=== PATIENT | female | born 1950 | race African-American/Black ===

== ENCOUNTER 2022-05-11 10:41 | Outpatient (REF) | payer MEDICARE, SELFPAY ==
--- NOTE | ~2022-05-11 | XR_ITS ---
EXAMINATION: BILATERAL HAND/WRIST. CLINICAL INFORMATION: Primary osteoarthritis. Pain. COMPARISON: None TECHNIQUE: 4 views each hand. FINDINGS: Right hand/wrist: There is loss of PIP and DIP joint space with moderate periarticular spurring DIP joint fourth digit and DIP joints third and fifth digit. No visible acute fracture, dislocation or subluxation seen. No bony erosive changes. XR/XR hand wrist RT IMPRESSION: Degenerative arthritic changes PIP and DIP joints both hands. No visible acute fracture, dislocation or subluxation seen.
--- NOTE | ~2022-05-11 | XR_ITS ---
EXAMINATION: BILATERAL HAND/WRIST. CLINICAL INFORMATION: Primary osteoarthritis. Pain. COMPARISON: None TECHNIQUE: 4 views each hand. FINDINGS: Right hand/wrist: There is loss of PIP and DIP joint space with moderate periarticular spurring DIP joint fourth digit and DIP joints third and fifth digit. No visible acute fracture, dislocation or subluxation seen. No bony erosive changes. XR/XR hand wrist LT IMPRESSION: Degenerative arthritic changes PIP and DIP joints both hands. No visible acute fracture, dislocation or subluxation seen.
== END 2022-05-11 10:42 | disposition home or self-care (01) ==
LOC: HO.XRAY 10:41
PROVIDERS: PCP Internal Medicine; Visit Provider Student in an Organized Health Care Education/Training Program
DX: M19.041 Primary osteoarthritis, right hand (principal); M19.042 Primary osteoarthritis, left hand; M10.9 Gout, unspecified; I95.9 Hypotension, unspecified
CPT/HCPCS: 73110; 73130; 99202

== ENCOUNTER 2022-05-11 13:00 | Outpatient (REF) | payer MEDICARE, SELFPAY ==
[2022-05-11 13:58] LABS: MANUAL DIFF FLAG NO
[2022-05-11 14:11] LABS: Basophils Percent Auto 0.6 % (0-2); Eosinophils Absolute Auto 0.1 X10*3/uL (0.0-0.4); Eosinophils Percent Auto 1.1 % (0-4); Hematocrit 37.3 % (37.0-47.0); Imm Gran Abs Auto 0.01 X10*3/uL (0.00-0.03); Imm Gran Pct Auto 0.2 % (0.0-0.4); Lymphocytes Absolute Auto 2.5 X10*3/uL (1.2-4.9); Lymphocytes Percent Auto 46.4 % (20-40); Mean Corpuscular HGB Conc 32.2 g/dl (31.0-35.0); Mean Corpuscular Hemoglobin 28.2 pg (27.0-33.0); Mean Corpuscular Volume 87.8 fL (80.0-98.0); Monocytes Absolute Auto 0.3 X10*3/uL (0.1-1.2); Monocytes Percent Auto 5.5 % (2-11); Neutrophils Absolute Auto 2.5 x10*3/uL (2.0-8.3); Neutrophils Percent Auto 46.2 % (45-73); Platelet Count 292 X10*3/uL (160-400); Red Blood Count 4.25 X10*6/uL (4.20-5.50); Red Cell Distribution Width 13.1 % (11.0-16.0); White Blood Count 5.3 X10*3/uL (4.8-10.8)
[2022-05-11 14:46] LABS: Erythrocyte Sedimentation Rate 16 MM/HR (0-20)
[2022-05-11 15:28] LABS: Alanine Aminotransferase 32 U/L (0-31); Albumin Level 4.8 g/dL (3.5-5.0); Alkaline Phosphatase 62 U/L (39-117); Anion Gap 12 (12-20); Aspartate Amino Transferase 23 U/L (5-31); Bilirubin Total 0.6 mg/dL (0.0-1.0); Blood Urea Nitrogen 19 mg/dL (9-16); Carbon Dioxide 30 mmol/L (22-29); Chloride 100 mmol/L (96-108); Estimated Glomerular Filt Rate 41; Glucose Random 106 mg/dL (60-115); Potassium 3.8 mmol/L (3.3-5.1); Rheumatoid Factor < 13.0 IU/mL (<15.0); Sodium 138 mmol/L (135-145); Total Protein 7.6 g/dL (6.5-8.0); Uric Acid 5.5 mg/dL (2.4-5.7)
[2022-05-13 14:54] LABS: Cyclic Citrullinated Peptide <16 UNITS
== END 2022-05-11 13:01 | disposition home or self-care (01) ==
LOC: HO.10HDL 13:00
PROVIDERS: Visit Provider Student in an Organized Health Care Education/Training Program
DX: M25.541 Pain in joints of right hand (principal); M10.9 Gout, unspecified
CPT/HCPCS: 36415; 80053; 84550; 85025; 85652; 86140; 86200; 86431

== ENCOUNTER → 2022-07-06 08:22 | Outpatient (BNVA) | payer MEDICARE, SELFPAY | PROVIDERS: PCP Internal Medicine; Visit Provider Student in an Organized Health Care Education/Training Program | DX: M19.042 Primary osteoarthritis, left hand (principal); M19.041 Primary osteoarthritis, right hand; M17.0 Bilateral primary osteoarthritis of knee; M10.9 Gout, unspecified; I95.9 Hypotension, unspecified | CPT/HCPCS: 99212 ==

== ENCOUNTER → 2022-09-24 13:42 | Outpatient (BNVA) | payer MEDICARE, SELFPAY | PROVIDERS: PCP Internal Medicine; Visit Provider Student in an Organized Health Care Education/Training Program | DX: M17.0 Bilateral primary osteoarthritis of knee (principal); M19.041 Primary osteoarthritis, right hand; M19.042 Primary osteoarthritis, left hand; M1A.09X0 Idiopathic chronic gout, multiple sites, without tophus (tophi) | CPT/HCPCS: 99212 ==

== ENCOUNTER 2023-03-22 11:45 | Outpatient (AMB) | payer MEDICARE, SELFPAY ==
[2023-03-22 11:57] VITALS: BP 116/72; PULSE 64; TEMP 36.2; O2SAT 95; BMI 34.0
--- NOTE | 2023-03-22 11:57 | MHC.OFFVIS ---
Intake Vital Signs 03/22/23 11:57 Height 4 ft 9.5 in Weight 159 lb 13.362 oz BMI 34.0 BP 116/72 Blood Pressure Location Rt brachial Position Sitting Pulse 64 Pulse Source Pulse Oximeter Temp 97.2 F Temp Source Skin Pulse Oximetry (%) 95 Intake Visit Reasons: OA Intake Note: Pt last seen 09/24/22, presents today for follow up. Managing pains with tylenol, voltaren, allopurinol, and prednisone prn. C/o pain low back. She states pain is worse on left and radiates down the legs into thighs and calves. Data Security Consultant Required: No Accompanied by: Self / Same As Patient Allergies shellfish derived Allergy (Intermediate, Verified 03/22/23 12:00) Rash adhesive tape Allergy (Unknown, Verified 03/22/23 12:00) unknown ibuprofen Allergy (Unknown, Verified 03/22/23 12:00) Unknown Medication List - Last Reconciled 03/22/23 by China Fulton MD acetaminophen (Tylenol Extra Strength) 500 mg PO QID PRN allopurinol 100 mg PO DAILY amlodipine 5 mg PO DAILY chlorthalidone 50 mg PO DAILY citalopram 10 mg PO DAILY coenzyme Q10 (Ultra CoQ10) 150 mg PO DAILY diclofenac sodium 1% (Voltaren Arthritis Pain) 4 grams topical QID diclofenac sodium 1% 2 grams topical QID famotidine 20 mg PO BID hydroxyzine HCl 10 mg PO TID PRN metoprolol tartrate 100 mg PO DAILY multivitamin 1 tab PO DAILY oxycodone 5 mg PO Q4H PRN prednisone 2.5 mg PO DAILY PRN simvastatin 20 mg PO DAILY valsartan 160 mg PO DAILY HPI HPI Comments History of Present Illness Details 71-year-old female with generalized osteoarthritis and gout presents for follow-up. States that over the last few months she has been having lower back pain radiating to her lower extremities, worse on the left. She was evaluated by PCP and physical therapy was ordered. She states that she is going to start physical therapy in 2 weeks. She states that she rarely uses the prednisone. Initial history: 71-year-old female with a past medical history of gout, HOCM, hypertension, dyslipidemia who presents for evaluation of bilateral hand pain and swelling. Patient has been having bilateral hand pain and swelling for quite a while now, she cannot tell how long she has had it. She has pain in her knuckles and thumbs. Pain is generally worse in the morning associated with swelling of her left index and right index and right ring fingers. Sometimes she cannot put her rings on. She has morning stiffness of her hands lasting 10-15 minutes improved with using a squeeze ball and massaging her hands. She states she was diagnosed with gout many years ago and has not had any gout flares for years. She is on allopurinol 100 mg daily. Over the last few days she has been feeling somewhat dizzy especially when standing up from sitting down. There has not been any change in her meds. She denies any fevers or viral symptoms. [facility] Medical History Visual field defect POAG (primary open-angle glaucoma) Pinguecula Mixed hyperlipidemia PTSD (post-traumatic stress disorder) Osteoarthritis, knee Snoring Hypertrophic scar Intertrigo Abdominal pannus Gout Hypertrophic obstructive cardiomyopathy Surgical History History of endometrial ablation Hx of colonoscopy Hx of cataract extraction Hx of section History of bunionectomy Family History Mother Lung cancer Breast cancer Diabetes Father Prostate cancer Colon cancer Social History Household Members: None Alcohol intake: current Patient Tobacco Use Status: Never used Tobacco Current occupational status: employed Current occupation: home daycare Review of Systems Const All systems reviewed & are unremarkable except as noted in HPI and below Musc Reports back pain, Reports arthralgias, Reports radiating pain into limb and Reports stiffness Physical Exam Vital Signs: Last Vital Signs Temp 97.2 F 03/22/23 11:57 Pulse 64 03/22/23 11:57 BP 116/72 03/22/23 11:57 Pulse Ox 95 03/22/23 11:57 BMI result Body Mass Index 34.0 HEENT Head: Yes normocephalic and Yes atraumatic Mouth: moist mucous membranes Resp Effort & Inspection: normal respiratory effort and able to speak in complete sentences Skin General skin exam: no rashes or lesions noted Extrem Other: Osteoarthritic changes of both hands with prominent Heberden's and Sally's nodes. Nontender Positive straight leg raise test on the left Results Reviewed Results Reviewed: Rheumatoid factor -ve 2020 Assessment & Plan Assessment & Plan (1) Gout: Code(s): M10.9 - Gout, unspecified Qualifiers: Gout site: multiple sites Gout etiology: idiopathic Chronicity: chronic Presence of tophus: without tophus Qualified Code(s): M1A.09X0 - Idiopathic chronic gout, multiple sites, without tophus (tophi) Plan: Stated she was diagnosed with gout many years ago. No recent gout flares. Symptoms are controlled on allopurinol 100 mg daily. Most recent uric acid level 5.5 05/06. Well controlled. Continue allopurinol 100 mg daily Follow-up in 1 year (2) Lumbar degenerative disc disease: Code(s): M51.36 - Other intervertebral disc degeneration, lumbar region Plan: Recently evaluated by PCP and will be starting physical therapy soon. I suggested pain management evaluation if there is no improvement with PT Plan I spent 15 minutes reviewing patient's chart, evaluating patient, counseling patient and documenting in the chart Coding Level of Care Code Est Pt Level 3 (63193) Diagnoses Idiopathic chronic gout of multiple sites without tophus M1A.09X0 Gout site: multiple sites Gout etiology: idiopathic Chronicity: chronic Presence of tophus: without tophus Lumbar degenerative disc disease M51.36
== END 2023-03-22 12:29 | disposition home or self-care (01) ==
PROVIDERS: PCP Internal Medicine; Visit Provider Student in an Organized Health Care Education/Training Program
DX: M1A.09X0 Idiopathic chronic gout, multiple sites, without tophus (tophi) (principal); M51.36 Other intervertebral disc degeneration, lumbar region
CPT/HCPCS: 99213

== ENCOUNTER → 2023-03-22 11:45 | Outpatient (BNVA) | payer MEDICARE, SELFPAY | PROVIDERS: Visit Provider Student in an Organized Health Care Education/Training Program | DX: M1A.09X0 Idiopathic chronic gout, multiple sites, without tophus (tophi) (principal); M51.36 Other intervertebral disc degeneration, lumbar region | CPT/HCPCS: 99212 ==

== ENCOUNTER 2024-03-22 09:39 | Outpatient (AMB) | payer MEDICARE, MEDICAID, SELFPAY ==
--- NOTE | 2024-03-22 09:41 | A.OFFVIS_ITS ---
Vital Signs 03/22/24 09:51 Height 4 ft 9.5 in Weight 144 lb 2.917 oz BMI 30.7 BP 120/62 Blood Pressure Location Rt brachial Position Sitting Pulse 78 Pulse Source Pulse Oximeter Pulse Oximetry (%) 98 Oxygen Delivery Method Room Air Intake Visit Reasons: OA/CM Intake Note: Patient presents for OA. Allergies shellfish derived Allergy (Intermediate, Verified 03/22/24 09:47) Rash adhesive tape Allergy (Unknown, Verified 03/22/24 09:47) unknown ibuprofen Allergy (Unknown, Verified 03/22/24 09:47) Unknown Medication List - Last Reconciled 03/22/24 by China Fulton MD acetaminophen (Tylenol Extra Strength) 500 mg PO QID PRN allopurinol 100 mg PO DAILY alpha lipoic acid 600 mg PO DAILY amlodipine 5 mg PO DAILY chlorthalidone 50 mg PO DAILY citalopram 10 mg PO DAILY coenzyme Q10 (Ultra CoQ10) 150 mg PO DAILY diclofenac sodium 1% (Voltaren Arthritis Pain) 4 grams topical QID diclofenac sodium 1% 2 grams topical QID famotidine 20 mg PO BID hydroxyzine HCl 10 mg PO TID PRN metoprolol tartrate 100 mg PO DAILY multivitamin 1 tab PO DAILY simvastatin 20 mg PO DAILY valsartan 160 mg PO DAILY HPI Comments Details: 73-year-old female with generalized osteoarthritis and gout presents for follow- up. She states that she has been doing reasonably well overall. Has not had any gout flare-ups. Remains on allopurinol 100 mg daily. She states that she has been having some tingling and burning when sitting down at [employer], sometimes at night. She feels that she gets mild generalized joint and muscle aches with activity. Unable to dance as long as she would like to Initial history: 71-year-old female with a past medical history of gout, HOCM, h ypertension, dyslipidemia who presents for evaluation of bilateral hand pain and swelling. Patient has been having bilateral hand pain and swelling for quite a while now, she cannot tell how long she has had it. She has pain in her knuckles and thumbs. Pain is generally worse in the morning associated with swelling of her left index and right index and right ring fingers. Sometimes she cannot put her rings on. She has morning stiffness of her hands lasting 10- 15 minutes improved with using a squeeze ball and massaging her hands. She states she was diagnosed with gout many years ago and has not had any gout flares for years. She is on allopurinol 100 mg daily. Over the last few days she has been feeling somewhat dizzy especially when standing up from sitting down. There has not been any change in her meds. She denies any fevers or viral symptoms. [facility] Medical History Visual field defect POAG (primary open-angle glaucoma) Pinguecula Mixed hyperlipidemia PTSD (post-traumatic stress disorder) Osteoarthritis, knee Snoring Hypertrophic scar Intertrigo Abdominal pannus Gout Hypertrophic obstructive cardiomyopathy Surgical History History of endometrial ablation Hx of colonoscopy Hx of cataract extraction Hx of section History of bunionectomy Family History Mother Lung cancer Breast cancer Diabetes Father Prostate cancer Colon cancer Social History Household Members: None Alcohol intake: current Patient Tobacco Use Status: Never used Tobacco Current occupational status: employed Current occupation: home daycare Review of Systems Musc Reports arthralgias, Reports numbness, Reports stiffness and Reports tingling Neuro Reports numbness and Reports tingling Physical Exam Vital Signs: Last Vital Signs Pulse 78 03/22/24 09:51 BP 120/62 03/22/24 09:51 Pulse Ox 98 03/22/24 09:51 Oxygen Delivery Method Room Air 03/22/24 09:51 BMI result Body Mass Index 30.7 HEENT Head: Yes normocephalic and Yes atraumatic Mouth: moist mucous membranes Resp Effort & Inspection: normal respiratory effort and able to speak in complete sentences Skin General skin exam: no rashes or lesions noted Extrem Other: Osteoarthritic changes of both hands with prominent Heberden's and Sally's nodes. Nontender Assessment & Plan Assessment & Plan (1) Gout: Code(s): M10.9 - Gout, unspecified Category: Medical Qualifiers: Gout site: multiple sites Gout etiology: idiopathic Chronicity: chronic Presence of tophus: without tophus Qualified Code(s): M1A.09X0 - Idiopathic chronic gout, multiple sites, without tophus (tophi) Plan: Stated she was diagnosed with gout many years ago. No recent gout flares. Symptoms are controlled on allopurinol 100 mg daily. Most recent uric acid level 5.5 05/06. Check uric acid level today. Continue allopurinol 100 mg daily Follow-up in 1 year (2) Right leg numbness: Code(s): R20.0 - Anesthesia of skin Category: Medical Plan: Start alpha lipoic acid 600 mg daily treatment trial for one-month. If helpful, it can be refilled Plan I spent 15 minutes reviewing patient's chart, evaluating patient, ordering diagnostic workup, counseling patient and documenting in the chart Orders: Orders Basic Metabolic Panel Today M1A.09X0 - Idiopathic chronic gout, multiple sites, without tophus (tophi) Uric Acid Today M1A.09X0 - Idiopathic chronic gout, multiple sites, without tophus (tophi) Medications: New allopurinol 100 mg PO DAILY 90 tabs 3RF alpha lipoic acid 600 mg PO DAILY 30 caps 0RF Coding Level of Care Code Est Pt Level 3 (90801) Diagnoses Idiopathic chronic gout of multiple sites without tophus M1A.09X0 Gout site: multiple sites Gout etiology: idiopathic Chronicity: chronic Presence of tophus: without tophus Right leg numbness R20.0
[2024-03-22 09:51] VITALS: BP 120/62; PULSE 78; O2SAT 98; BMI 30.7
== END 2024-03-22 10:05 | disposition home or self-care (01) ==
PROVIDERS: PCP Internal Medicine; Visit Provider Student in an Organized Health Care Education/Training Program
DX: M1A.09X0 Idiopathic chronic gout, multiple sites, without tophus (tophi) (principal); R20.0 Anesthesia of skin
CPT/HCPCS: 99213

== ENCOUNTER → 2024-03-22 09:39 | Outpatient (BNVA) | payer MEDICARE, SELFPAY | PROVIDERS: PCP Internal Medicine; Visit Provider Student in an Organized Health Care Education/Training Program | DX: M1A.09X0 Idiopathic chronic gout, multiple sites, without tophus (tophi) (principal); R20.0 Anesthesia of skin | CPT/HCPCS: 99212 ==

== ENCOUNTER 2024-03-22 10:13 | Outpatient (REF) | payer MEDICARE, MEDICAID, SELFPAY ==
[2024-03-22 11:06] LABS: Anion Gap 13 (12-20); Blood Urea Nitrogen 18 mg/dL (9-16); Calcium 10.3 mg/dL (8.4-10.2); Carbon Dioxide 30 mmol/L (22-29); Chloride 102 mmol/L (96-108); Estimated Glomerular Filt Rate > 60; Glucose Random 121 mg/dL (60-115); Potassium 3.3 mmol/L (3.3-5.1); Sodium 142 mmol/L (135-145); Uric Acid 5.1 mg/dL (2.4-5.7)
== END 2024-03-22 10:14 | disposition home or self-care (01) ==
LOC: HO.10HDL 10:13
PROVIDERS: Visit Provider Student in an Organized Health Care Education/Training Program
DX: M1A.09X0 Idiopathic chronic gout, multiple sites, without tophus (tophi) (principal)
CPT/HCPCS: 36415; 80048; 84550

== ENCOUNTER 2025-03-21 09:45 | Outpatient (REF) | payer MEDICARE, OTHER, SELFPAY ==
[2025-03-21 13:01] LABS: MANUAL DIFF FLAG NO
[2025-03-21 13:12] LABS: Hematocrit 38.9 % (37.0-47.0); Hemoglobin 12.6 g/dl (12.0-16.0); Imm Gran Abs Auto 0.01 X10*3/uL (0.00-0.03); Imm Gran Pct Auto 0.2 % (0.0-0.4); Lymphocytes Absolute Auto 2.2 X10*3/uL (1.2-4.9); Mean Corpuscular HGB Conc 32.4 g/dl (31.0-35.0); Mean Corpuscular Hemoglobin 28.9 pg (27.0-33.0); Mean Corpuscular Volume 89.2 fL (80.0-98.0); NRBC Abs Auto 0.000 X10*3/uL (0.0-0.012); NRBC Pct Auto 0.0 /100WBC (0.0-0.2); Platelet Count 298 X10*3/uL (160-400); Red Blood Count 4.36 X10*6/uL (4.20-5.50); White Blood Count 5.3 X10*3/uL (4.8-10.8)
[2025-03-21 13:56] LABS: Alanine Aminotransferase 25 U/L (0-31); Albumin Level 4.7 g/dL (3.5-5.0); Alkaline Phosphatase 57 U/L (39-117); Anion Gap 11 (12-20); Aspartate Amino Transferase 24 U/L (5-31); Blood Urea Nitrogen 20 mg/dL (9-16); Calcium 9.6 mg/dL (8.4-10.2); Carbon Dioxide 30 mmol/L (22-29); Chloride 104 mmol/L (96-108); Estimated Glomerular Filt Rate 56; Potassium 3.7 mmol/L (3.3-5.1); Sodium 141 mmol/L (135-145); Total Protein 7.1 g/dL (6.5-8.0); Uric Acid 5.1 mg/dL (2.4-5.7)
== END 2025-03-21 09:46 | disposition home or self-care (01) ==
LOC: HO.HKASLDS 09:45
PROVIDERS: PCP Internal Medicine; Visit Provider Student in an Organized Health Care Education/Training Program
DX: M1A.09X0 Idiopathic chronic gout, multiple sites, without tophus (tophi) (principal); M15.9 Polyosteoarthritis, unspecified; Z13.820 Encounter for screening for osteoporosis; Z51.81 Encounter for therapeutic drug level monitoring; Z79.899 Other long term (current) drug therapy
CPT/HCPCS: 20610; 36415; 80053; 82306; 84550; 85025; 85652; 86140; 99212; J2003; J3301

== ENCOUNTER 2025-03-21 09:45 | Outpatient (AMB) | payer MEDICARE, MEDICAID, SELFPAY ==
--- NOTE | 2025-03-21 10:08 | A.OFFVIS_ITS ---
Vital Signs 03/21/25 10:22 Height 4 ft 9.5 in Weight 140 lb 3.424 oz BMI 29.8 BP 102/60 Blood Pressure Location Lt brachial Position Sitting Pulse 68 Pulse Source Pulse Oximeter Pulse Oximetry (%) 98 Oxygen Delivery Method Room Air Intake Visit Reasons: Gout/OA Intake Note: Patient presents for Gout/OA follow up. Patient c/o of RT leg pain and LT hip pain. Allergies shellfish derived Allergy (Intermediate, Verified 03/21/25 10:19) Rash adhesive tape Allergy (Unknown, Verified 03/21/25 10:19) unknown ibuprofen Allergy (Unknown, Verified 03/21/25 10:19) Unknown Medication List - Last Reconciled 03/21/25 by Susan Muñiz MD acetaminophen (Tylenol Extra Strength) 500 mg PO QID PRN allopurinol 100 mg PO DAILY alpha lipoic acid 600 mg PO DAILY amlodipine 5 mg PO DAILY chlorthalidone 50 mg PO DAILY citalopram 10 mg PO DAILY coenzyme Q10 (Ultra CoQ10) 150 mg PO DAILY famotidine 20 mg PO BID hydroxyzine HCl 10 mg PO TID PRN metoprolol succinate ER 100 mg PO DAILY multivitamin 1 tab PO DAILY potassium chloride ER 10 mEq PO DAILY simvastatin 20 mg PO DAILY valsartan 160 mg PO DAILY HPI Comments Details: Patient is a 74-year-old female with hypertension, hyperlipidemia, polyarticular osteoarthritis and gout here today for follow up Interval History: Patient last seen 03/22/[address] Fulton - On allopurinol 100mg daily, and topical diclofenac 1% - She states that she has been doing reasonably well overall. - Has not had any gout flare-ups. Remains on allopurinol 100 mg daily. - She states that she has been having some tingling and burning when sitting down at [employer], sometimes at night. -She feels that she gets mild generalized joint and muscle aches with activity. Unable to dance as long as she would like to - Started on alpha lipoic acid Today - On allopurinol 100mg daily, alpha lipoic acid 600mg daily, and topical di clofenac 1% - No gout flares - Complains of left outer hip pain and right dumont pain - Topical diclofenac helps Rheumatologic History: Initial history: 71-year-old female with a past medical history of gout, HOCM, hypertension, dyslipidemia who presents for evaluation of bilateral hand pain and swelling. Patient has been having bilateral hand pain and swelling for quite a while now, she cannot tell how long she has had it. She has pain in her knuckles and thumbs. Pain is generally worse in the morning associated with swelling of her left index and right index and right ring fingers. Sometimes she cannot put her rings on. She has morning stiffness of her hands lasting 10- 15 minutes improved with using a squeeze ball and massaging her hands. She states she was diagnosed with gout many years ago and has not had any gout flares for years. She is on allopurinol 100 mg daily. Over the last few days she has been feeling somewhat dizzy especially when standing up from sitting down. There has not been any change in her meds. She denies any fevers or viral symptoms. Current Rheumatology Medication(s): Allopurinol 100mg daily Topical diclofenac 1% PFSH Medical History Visual field defect POAG (primary open-angle glaucoma) Pinguecula Mixed hyperlipidemia PTSD (post-traumatic stress disorder) Osteoarthritis, knee Snoring Hypertrophic scar Intertrigo Abdominal pannus Gout Hypertrophic obstructive cardiomyopathy Surgical History History of endometrial ablation Hx of colonoscopy Hx of cataract extraction Hx of section History of bunionectomy Family History Mother Lung cancer Breast cancer Diabetes Father Prostate cancer Colon cancer Social History Household Members: None Alcohol intake: current Patient Tobacco Use Status: Never used Tobacco Current occupational status: employed Current occupation: home daycare Review of Systems Narrative Review of Systems Constitutional: Denies fever, chills, weight loss ENT: Denies vision changes, eye pain or eye redness, dental caries, dry mouth GI: Denies nausea, vomiting, diarrhea, abdominal pain, change in BM Pulm: Denies SOB, SHIELDS, hemoptysis, wheezing Cards: Denies chest pain, palpitations Skin: Denies Raynaud's, rash, nail changes, photosensitivity, [employer]: Denies headaches, weakness, paresthesias, recurrent falls MSK: as per HPI All other systems reviewed and are unremarkable except noted above Physical Exam Exam Exam: Vital signs reviewed Physical Examination CONSTITUITIONAL Patient alert and cooperative. Well appearing and in no apparent painful distress MSK Hands * Right Hand: Able to make a fist. No swelling or tenderness to palpation of the MCPs, PIPs or DIPs. * Left Hand: Able to make a fist. No swelling or tenderness to palpation of the MCPs, PIPs or DIPs. * Herbedens and Bouchards nodes noted bilaterally Wrists * Right Wrist: Full ROM to flexion and extension. No swelling or TTP * Left Wrist: Full ROM to flexion and extension. No swelling or TTP Elbows * Right Elbow: Full ROM. No swelling or TTP. No TTP of the medial epicondyle. No TTP of the lateral epicondyle * Left Elbow: Full ROM. No swelling or TTP. No TTP of the medial epicondyle. No TTP of the lateral epicondyle Shoulders * Right shoulder: Decreased ROM. No swelling noted. No TTP of the AC joint. TTP of the subacromial bursa. No TTP of the posterior shoulder * Left shoulder: Good ROM . No swelling noted. No TTP of the AC joint. No TTP of the subacromial bursa. No TTP of the posterior shoulder Knees * Right knee: Full ROM. No swelling noted. No TTP of the knee joint line. No TTP of pes anserine bursa * Left knee: Full ROM. No swelling noted. No TTP of the knee joint line. No TTP of pes anserine bursa. * Crepitations felt bilaterally Ankles * Right ankle: Good ankle dorsiflexion and plantar flexion. No swelling. No TTP of the ankle joint * Left ankle: Good ankle dorsiflexion and plantar flexion. No swelling. No TTP of the ankle joint Feet * Right foot: Negative squeeze test * Left foot: Negative squeeze test Tender points? * No tenderness to palpation of the bilateral trapezius, supraspinatus, anterior costochondral junctions, bilateral suboccipital muscle insertions Lower extremity * Tenderness over dumont SKIN No rashes Vital Signs: Last Vital Signs Pulse 68 03/21/25 10:22 BP 102/60 03/21/25 10:22 Pulse Ox 98 03/21/25 10:22 Oxygen Delivery Method Room Air 03/21/25 10:22 BMI result Body Mass Index 29.8 Office Procedures AMB Joint Injection/Aspiration Joint Injection/Aspiration Details: Procedure was explained to the patient and informed consent was obtained. ? Risks associated with the procedure were discussed with the patient including but not limited to bleeding, infection, drug reactions and reactions to the topical anesthetic. Patient made aware of signs to look out for infectious complications. The area of interest was identified and confirmed with patient. ?This was subsequently cleaned with chlorhexidine x 2. ? The area was then anesthetized using ethyl chloride spray. 40 mg Kenalog with 1 cc 1% lidocaine was injected without issue. ?Minimal to no bleeding. ?Patient tolerated procedure. Primary Site: right shoulder (right subacromial bursa ) Prep: site was prepped using aseptic technique and ethochloride spray was applied Injected: 40 mg of, Kenalog, with 1 mL of, 1% plain lidocaine and in the subcromial space Approach Used: anterior Procedure: The patient tolerated the procedure well Coding 48377 - Large joint Procedure code (CPT) selection complete Office Meds lidocaine (PF) 10 mg/mL (1 %) injection solution Performing Provider: Susan Muñiz MD Performing Location: [facility] Administered by: Yaquelin Cordova RN on 03/21/25 10:57 Dose Route Admin Location Dispensed Lot Number Expiration Date [facility] Scale Tank Operator 1 mL intrabursal right subacromial bursa 2 mL [id number] 08/13/26 [id number] [employer] Total Dispensed Waste 2 mL 50 % Kenalog 40 mg/mL suspension for injection Performing Provider: Susan Muñiz MD Performing Location: [facility] Administered by: Yaquelin Cordova RN on 03/21/25 10:57 Dose Route Admin Location Dispensed Lot Number Expiration Date [facility] Scale Tank Operator 40 mg intrabursal right subacromial bursa 1 mL [id number] 11/12/26 70 [id number] [employer] Total Dispensed Waste 1 mL 0 % Results Reviewed Results Reviewed: Laboratory Tests 05/11/22 03/22/24 13:14 10:15 WBC 5.3 RBC 4.25 Hgb 12.0 Hct 37.3 Plt Count 292 ESR 16 Sodium 142 Potassium 3.3 Chloride 102 Carbon Dioxide 30 H BUN 18 H Creatinine 0.83 Uric Acid 5.5 5.1 AST 23 ALT 32 H C-Reactive Protein 0.30 Laboratory Tests 05/11/22 13:14 Rheumatoid Factor < 13.0 Cycl Citrul Peptide IgG <16 Assessment & Plan Assessment & Plan (1) Gout: Code(s): M10.9 - Gout, unspecified Category: Medical Qualifiers: Chronicity: chronic Gout etiology: idiopathic Gout site: multiple sites Presence of tophus: without tophus Qualified Code(s): M1A.09X0 - Idiopathic chronic gout, multiple sites, without tophus (tophi) Plan: #Gout Patient is a 74-year-old female with non crystal proven gout here today for follow up. No gout flares since last visit. No tophi on exam Plan - Allopurinol 100mg daily - Labs today: CBC, CMP, ESR, CRP, Uric Acid - RTC 6 months - Labs before visit: CBC, CMP, ESR, CRP, Uric Acid (2) Polyarticular osteoarthritis: Code(s): M15.9 - Polyosteoarthritis, unspecified Plan: #Polyarticular OA Patient with polyarticular osteoarthritis. Current complaints are related to mechanical changes such as her dumont splints and her hip pain. She is status post right subacromial bursa steroid injection today and recommending topical diclofenac 4 times a day for her dumont splints Plan - Topical diclofenac 1% qid - s/p right subacromial bursa injection (3) Screening for osteoporosis: Code(s): Z13.820 - Encounter for screening for osteoporosis Plan: #Screening for osteoporosis Check DEXA Plan - Check DEXA Scan (4) Encounter for monitoring allopurinol therapy: Code(s): Z51.81 - Encounter for therapeutic drug level monitoring; Z79.899 - Other adjunct faculty for medical terminology (current) drug therapy Plan: #Long-term Current Use of Allopurinol Risks and benefits of allopurinol discussed with patient Benefits include decreased gout flares, remission of gout and reduction of tophi Risks include allopurinol hypersensitivity syndrome which is a severe cutaneous adverse reaction associated with allopurinol use particularly in patients who are HLA B*5801 positive, increased transaminases, GI upset including diarrhea, nausea and vomiting, and other dermatologic manifestations. Plan I spent 30 minutes reviewing the record and labs, taking a history, examining the patient, discussing the treatment plan, ordering diagnostic work up and documenting in the medical record Orders: Orders Erythrocyte Sedimentation Rate 6 Months M1A.09X0 - Idiopathic chronic gout, multiple sites, without tophus (tophi) Uric Acid 6 Months M1A.09X0 - Idiopathic chronic gout, multiple sites, without tophus (tophi) Complete Blood Count Auto Diff Today M1A.09X0 - Idiopathic chronic gout, multiple sites, without tophus (tophi) C Reactive Protein Today M1A.09X0 - Idiopathic chronic gout, multiple sites, without tophus (tophi) Vitamin D 25-OH Total 6 Months Z79.899 - Other longterm (current) drug therapy Vitamin D 25-OH Total Today Z79.899 - Other adjunct faculty for medical terminology (current) drug therapy XR DEXA axial skeleton Today M81.0 - Age-related osteoporosis without current pathological fracture AMB Joint Injection/Aspiration Today M75.51 - Bursitis of right shoulder Complete Blood Count Auto Diff 6 Months M1A.09X0 - Idiopathic chronic gout, multiple sites, without tophus (tophi) Comprehensive Met. Panel 6 Months M1A.09X0 - Idiopathic chronic gout, multiple sites, without tophus (tophi) C Reactive Protein 6 Months M1A.09X0 - Idiopathic chronic gout, multiple sites, without tophus (tophi) Comprehensive Met. Panel Today M1A.09X0 - Idiopathic chronic gout, multiple sites, without tophus (tophi) Erythrocyte Sedimentation Rate Today M1A.09X0 - Idiopathic chronic gout, multiple sites, without tophus (tophi) Uric Acid Today M1A.09X0 - Idiopathic chronic gout, multiple sites, without tophus (tophi) Medications: Discontinued diclofenac sodium 1% (Voltaren Arthritis Pain) apply to both knees Discontinued Reason: Doctor's Order 4 grams topical QID 100 grams 2RF diclofenac sodium 1% apply to single elbow, wrist, knee or hand; for hand includes palm/fingers/back of hand Discontinued Reason: Doctor's Order 2 grams topical QID 100 grams 1RF Coding Level of Care Code Est Pt Level 4 (73812) Complex EM visit Add On G2211 Diagnoses Idiopathic chronic gout of multiple sites without tophus M1A.09X0 Chronicity: chronic Gout etiology: idiopathic Gout site: multiple sites Presence of tophus: without tophus Polyarticular osteoarthritis M15.9 Screening for osteoporosis Z13.820 Encounter for monitoring allopurinol therapy Z51.81; Z79.899 CPT Codes Coding - 57331 Large joint: 70406 - Large joint ([id number])
[2025-03-21 10:22] VITALS: BP 102/60; PULSE 68; O2SAT 98; BMI 29.8
--- OUTSIDE RECORDS SUMMARY | 2025-03-21 11:02 | XMS_ITS | Clinical Summary ---
Author Organization [facility], Address [address] [place] [address] [place] [address] Phone Care Team Providers Care Pressurization Mechanic Name Role Phone Lisbet Tarango MD Primary Care Pr ovider Allergies Active Allergy Reactions Criticality Noted Date Comments Ibuprofen 02/21/2023 Shellfish Allergy 12/02/2021 Medications metoprolol succinate XL (TOPROL-XL) 100 MG 24 hr tablet Take 100 mg by mouth 1 (one) time each day Do not crush or chew. Active coenzyme Q-10 100 MG capsule Take 100 mg by mouth 1 (one) time each day Active famotidine (PEPCID) 20 MG tablet Take 20 mg by mouth in the morning and 20 mg in the evening. Active simvastatin (ZOCOR) 20 MG tablet Take 20 mg by mouth every night Active chlorthalidone (HYGROTON) 50 MG tablet Take 50 mg by mouth 1 (one) time each day Active amLODIPine (NORVASC) 5 MG tablet Take 5 mg by mouth 1 (one) time each day Active hydrOXYzine (ATARAX) 10 MG tablet Take 10 mg by mouth 3 (three) times a day if needed for itching Active citalopram (CeleXA) 10 MG tablet Take 10 mg by mouth 1 (one) time each day Active oxyCODONE (OXY-IR) 5 MG immediate release capsule Take 5 mg by mouth every 4 (four) hours if needed for moderate pain Active acetaminophen (TYLENOL) 500 MG tablet Take by mouth every 6 (six) hours if needed for mild pain Active valsartan (DIOVAN) 160 MG tablet Take 160 mg by mouth 1 (one) time each day Active Multiple Vitamin (Daily-Mariza Multivitamin) tablet Take 1 tablet by mouth 1 (one) time each day 12/05/2021 Active allopurinol (ZYLOPRIM) 100 MG tablet Take 100 mg by mouth 1 (one) time each day Active OXcarbazepine (TRILEPTAL) 150 MG tablet Take 150 mg by mouth in the morning and 150 mg in the evening. Active cyclobenzaprine (FLEXERIL) 10 MG tablet TAKE 1 TABLET BY MOUTH THREE TIMES A DAY NEEDED FOR PAIN FOR 7 DAYS 11/19/2022 Active methocarbamol (ROBAXIN) 750 MG tablet TAKE 1 TABLET BY MOUTH FOUR TIMES A DAY ( EVERY 6 HOURS ) NEEDED FOR MUSCLE SPASM 11/15/2022 Active Active Problems Problem Noted Date Diagnosed Date Prediabetes 03/08/2023 Hypertension 12/02/2021 Gout 12/02/2021 Benign essential hypertension 11/03/2005 Overview (03/12/2024): Last Assessment & Plan: Controlled, continue ARB, CCB, BB, diuretic. Renal duplex unrevealing. Social History Tobacco Use Types Packs/Day Years Used Date Smoking Tobacco: Never Smokeless Tobacco: Never Alcohol Use Standard Drinks/Week Comments Yes 1 (1 standard drink = 0.6 oz pur e alcohol) Comments Unknown Sex and Gender Information Value Date Recorded Sex Assigned at Not on file Legal Sex Female 3:53 PM EDT Gender Identity Not on file Sexual Orientation Not on file Plan of Treatment Health Maintenance Due Date Last Done Comments Breast Cancer Screening 1950 Pneumococcal Vaccine: 50+ Ye ars (1 of 2 - PCV) 1969 Colorectal Cancer Screening: Annual FOBT 01/01/2000 Colorectal Cancer Screening: Colonoscopy 01/01/2000 Colorectal Cancer Screening: Sigmoidoscopy 01/01/2000 Influenza Vaccine (#1) 2025 03/01/2008 Hepatitis B Vaccine Aged Out No longe r eligible based on patient's age to complete this topic Insurance Medicare Medicaid [place] [employer] Commercial Care Teams Pressurization Mechanic Relationship Specialty Start Date End Date Lisbet Tarango MD PCP - General Internal Medicine 10/20/21
--- OUTSIDE RECORDS SUMMARY | 2025-03-21 11:02 | XMS_ITS | Clinical Summary ---
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 Osteopenia < -1 and > -2.5 Osteoporosis at or < -2.5 withoutfractures Established osteoporosis < -2.5 with fractures Daisy PULLIAM IMG DXA PROCEDURES Final R esult * Depression Screening (10/12/2020) [facility] Depression Screening abstracted Result [employer] [facility] Provider HEALTH MAINTENANCE Final Result * Colonoscopy (08/25/2017) [facility] Colonoscopy no interpretation , abstracted Anatomical Region Laterality Modality Other [facility] Provider HEALTH MAINTENANCE Final Result * Hepatitis C Screening (03/15/2016) [facility] Hepatitis C Screening abstracted Historical Provider HEALTH MAINTENANCE Final Result from Last 3 Months or Most Recently Relevant to Health Maintenance Insurance [place]ICAID - [place] [employer] MEDICARE Care Teams Horticultural Farmworker Relationship Specialty Start Date End Date Lisbet Tarango MD [address] [place] [id number] PCP - General 06/27/10
--- OUTSIDE RECORDS SUMMARY | 2025-03-21 11:02 | XMS_ITS | Encounter Summary ---
Author Organization [facility] Address [address] [place] [address] Phone Care Team Providers Care Snuff Grinder And Screener Name Role Phone Lisbet Tarango MD Primary Care Pr ovider Encounter Details Date Type Department Care Team (Late st Contact Info) Description 10/20/2021 Documentation Only [facility], [address] [place] [address] Lisbet Tarango MD [address] [place] [id number] Social History Tobacco Use Types Packs/Day Years Used Date Smoking Tobacco: Never Assessed Comments Unknown Sex and Gender Information Value Date Recorded Sex Assigned at Not on file Legal Sex Female 3:53 PM EDT Gender Identity Not on file Sexual Orientation Not on file documented as of this encounter Plan of Treatment Not on file documented as of this encounter Visit Diagnoses Not on filedocumented in this encounter Care Teams Snuff Grinder And Screener Relationship Specialty Start Date End Date Lisbet Tarango MD PCP - General Internal Medicine 10/20/21 documented as of this encounter
--- OUTSIDE RECORDS SUMMARY | 2025-03-21 11:02 | XMS_ITS | Clinical Summary ---
Author Organization [facility] Address [address] [place] [address] Care Team Providers Care Fitting Room Supervisor Name Role Phone Unavailable Primary Care Provider Unavailabl e Allergies Active Allergy Reactions Criticality Noted Date Comments Shellfish Protein-Containing Drug Products Unknown/Patient and Family Unable to Define Medium 11/14/2022 Medications methocarbamol (ROBAXIN) 750 MG tablet Take 1 tablet (750 mg total) by mouth 4 times daily (every 6 hours) as needed for muscle spasms. 20 tablet 11/14/2022 Active Social History Tobacco Use Types Packs/Day Years Used Date Smoking Tobacco: Never Assessed Comments Unknown Sex and Gender Information Value Date Recorded Sex Assigned at Female 11/14/2022 4:49 PM EDT Legal Sex Female 4:23 PM EDT Gender Identity Female 11/14/2022 4:49 PM EDT Sexual Orientation Heterosexual (straight) 11/14 4:49 PM EDT Last Filed Vital Signs Vital Sign Reading Time Taken Comments Blood Pressure 142/80 11/14/2022 4:27 PM EDT Pulse 99 11/14/2022 4:27 PM EDT Temperature 36.8 C (98.2 F) 11/14/2022 4:27 PM EDT Respiratory Rate 22 11/14/2022 4:27 PM EDT Oxygen Saturation 97% 11/14/2022 4:27 PM EDT Inhaled Oxygen Concentration - - Weight - - Height - - Body Mass Index - - Plan of Treatment Health Maintenance Due Date Last Done Comments Advance Care Planning 1950 Hepatitis C Virus Screening 1950 DTaP/Tdap/Td Vaccines (1 - Tdap) 1969 Mammogram 1990 Colonoscopy 01/01/1996 Pneumococcal Vaccines 50+ (1 of 1 - PCV) 2000 Zoster (Shingles) Vaccine (1 of 2) 2000 DXA Bone Density (Females,Ag es 65 and older) 01/01/2016 Influenza Vaccine 12/14/2024 COVID-19 Vaccine (1 - 2023-2 5 season) 2025 RSV Vaccine 50 years and old er and Patients (1 - 1-dose 75+ series) 2025 Hepatitis B Vaccines Aged Out No long er eligible based on patient's age to complete this topic Insurance [facility] MEDICARE PART A & B
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
--- OUTSIDE RECORDS SUMMARY | 2025-03-21 11:02 | XMS_ITS | Encounter Summary ---
Author Organization [facility], Address [address] [place] [address] Phone Care Team Providers Care Tobacco Buyer Name Role Phone Lisbet Tarango MD Primary Care Pr ovider Encounter Details Date Type Department Care Team (Late st Contact Info) Description 01/26/2022 Documentation Only [facility] [address] [place] [address] Mikhail Malik MD [address] [place] [phone] Social History Tobacco Use Types Packs/Day Years [...] on filedocumented in this encounter Care Teams Tobacco Buyer Relationship Specialty Start Date End Date Lisbet Tarango MD PCP - General Internal Medicine 10/20/21 documented as of this encounter
== END 2025-03-21 10:51 | disposition home or self-care (01) ==
LOC: HO.RHES 09:46
PROVIDERS: PCP Internal Medicine; Visit Provider Student in an Organized Health Care Education/Training Program
DX: M1A.09X0 Idiopathic chronic gout, multiple sites, without tophus (tophi) (principal); M15.9 Polyosteoarthritis, unspecified; M75.51 Bursitis of right shoulder; Z13.820 Encounter for screening for osteoporosis; Z51.81 Encounter for therapeutic drug level monitoring; Z79.899 Other long term (current) drug therapy
CPT/HCPCS: 20610; 99214

== ENCOUNTER 2025-03-26 10:24 | Outpatient (AMB) | payer MEDICARE, MEDICAID, SELFPAY ==
[2025-03-26 10:47] VITALS: BMI 30.3
--- NOTE | 2025-03-26 10:47 | A.PHYSOV ---
Vital Signs 03/26/25 10:47 Height 4 ft 9 in Weight 140 lb BMI 30.3 Intake Visit Reasons: B/L KNEE INJECTIONS Intake Note: Patient is a 74 year old female here for bilateral knee injections. Theater Usher Required: No Allergies shellfish derived Allergy (Intermediate, Verified 03/26/25 10:49) Rash adhesive tape Allergy (Unknown, Verified 03/26/25 10:49) unknown ibuprofen Allergy (Unknown, Verified 03/26/25 10:49) Unknown Medication List - Last Reconciled 03/26/25 by HERACLIO Amin acetaminophen (Tylenol Extra Strength) 500 mg PO QID PRN allopurinol 100 mg PO DAILY amlodipine 5 mg PO DAILY chlorthalidone 50 mg PO DAILY citalopram 10 mg PO DAILY coenzyme Q10 (Ultra CoQ10) 150 mg PO DAILY diclofenac sodium 1% (Arthritis Pain (diclofenac)) 4 grams topical QID famotidine 20 mg PO BID hydroxyzine HCl 10 mg PO TID PRN metoprolol succinate ER 100 mg PO DAILY multivitamin 1 tab PO DAILY potassium chloride ER 10 mEq PO DAILY simvastatin 20 mg PO DAILY valsartan 160 mg PO DAILY PFSH Medical History Visual field defect POAG (primary open-angle glaucoma) Pinguecula Mixed hyperlipidemia PTSD (post-traumatic stress disorder) Osteoarthritis, knee Snoring Hypertrophic scar Intertrigo Abdominal pannus Gout Hypertrophic obstructive cardiomyopathy Surgical History History of endometrial ablation Hx of colonoscopy Hx of cataract extraction Hx of section History of bunionectomy Family History Mother Lung cancer Breast cancer Diabetes Father Prostate cancer Colon cancer Social History (Updated 03/26/25 @ 10:50 by Corinne Urena MA) Household Members: None Alcohol intake: current Patient Tobacco Use Status: Never used Tobacco Current occupational status: employed and retired Current occupation: home daycare Physical Exam Vital Signs: BMI result Body Mass Index 30.3 Office Procedures AMB Knee Injection AMB Knee Injection Procedure Details: Bilateral Knee injection: The risks, benefits and complications of the left knee injection were discussed with the patient including but not limited to increased serum glucose, infection, nerve pain, fat atrophy, pigment augmentation, bleeding and pain. All questions were answered to the patient's satisfaction. Verbal consent was obtained. The patient was eager to proceed. Using aseptic technique with Betadine, ethyl chloride was then used to desensitize the skin. Using a 22-gauge needle 40 mg of Kenalog and 3 mL lidocaine were injected into the knee joint. A Band-Aid was applied. Patient tolerated the procedure well without immediate complication. Postinjection instructions were given. The procedure was repeated on the right. Ms. Chavira is a 74-year-old female seen in evaluation today for bilateral knee osteoarthritis. Today she consented to bilateral knee corticosteroid injection. She is given post injection instructions, recommend: Moist heat compresses 15 minutes to 5 times daily. Continue low-impact activities such as walking, biking swimming. Follow-up with our office in 3 months as needed. Patient requesting refill of Voltaren gel which I will provide today. Knee Injection - : Bilateral All charges added?: Procedure code (CPT) selection complete Office Meds Kenalog 40 mg/mL suspension for injection Performing Provider: HERACLIO Amin Performing Location: [facility] Administered by: HERACLIO Amin on 03/26/25 11:16 Dose Route Admin Location Dispensed Lot Number Expiration Date [facility] Environmental Quality Analyst 40 mg intra-articular 1 mL [id number] [employer] Total Dispensed Waste 1 mL 0 % lidocaine (PF) 20 mg/mL (2 %) injection solution Performing Provider: HERACLIO Amin Performing Location: [facility] Administered by: HERACLIO Amin on 03/26/25 11:16 Dose Route Admin Location Dispensed Lot Number Expiration Date [facility] Environmental Quality Analyst 60 mg intra-articular 3 mL [id number] Total Dispensed Waste 3 mL 0 % Assessment & Plan Assessment & Plan (1) Bilateral primary osteoarthritis of knee: Code(s): M17.0 - Bilateral primary osteoarthritis of knee Category: Medical Plan Follow-up 3 months as needed. Orders: Orders AMB Knee Injection Today M17.0 - Bilateral primary osteoarthritis of knee Medications: New diclofenac sodium 1% (Arthritis Pain (diclofenac)) apply to single knee, ankle, foot; for foot includes sole/toes/top of foot 4 grams topical QID 100 grams 2RF Coding Level of Care Code Procedure Only Diagnoses Bilateral primary osteoarthritis of knee M17.0 CPT Codes AMB Knee Injection - Hip/Bursa Injection - 08687: Bilateral ([id number])
--- OUTSIDE RECORDS SUMMARY | 2025-03-26 12:00 | XMS_ITS | Clinical Summary ---
Author Organization [facility] Address [address] [place] [address] Phone Care Team Providers Care Grocery Caddy Name Role Phone Lisbet Tarango MD Primary [...] ^1R1 28 tablet 5 02/22/20 25 Active valsartan (DIOVAN) 160 mg tablet TAKE ONE TABLET BY MOUTH EVERY DAY ^1R1 30 tablet 1 03/22/20 25 Active valsartan (DIOVAN) 160 mg tablet TAKE ONE TABLET BY MOUTH EVERY DAY ^1R1 30 tablet 2 12/28/19 25 025 Discontinued Active Problems Problem Noted [...] 01/01/2025 2:30 PM EDT Office Visit Adult [address] [phone] Daisy Burger PA Medicare annual wellness visit, subsequent (Primary Dx); Gouty arthritis; Prediabetes; Resistant hypertension; Essential hypertension, benign; PTSD (post-traumatic stress disorder); Mixed hyperlipidemia; Generalized anxiety disorder; Hypertrophic obstructive cardiomyopathy ([facility] V24, [facility] V28) from Last 3 Months Immunizations Immunization Administration Dates Next Due Influenza trivalent, with pr eservative (Fluzone; Afluria) 6mo and older 03/01/2008 PPD Test 11/03/2005,05/15/2002 Tdap Tetanus diptheria acell ular pertussis (Boostrix; Adacel) 7yo and older 01/01/2025,10/16/2014 Surgical History Surgery Date Site/Laterality Comments OTHER SURGICAL HISTORY PROCEDURE: [place] HYSTEROSCOPY ENDOMETRIAL ABLATION SECTION PROCEDURE: [place] DELIVERY ONLY OTHER SURGICAL HISTORY PROCEDURE: [place] LIG/TRNSXJ FLP TUBE ABDL/VAG APPR UNI/BI COLONOSCOPY [...] Record ed Within the last 3 months, ho w many times did you visit the emergency [...] for your loved ones. For example, child care nurse or elderly care for an older adult? [...] AM EST Office Visit [facility] [address] [place] [address] Lisbet Tarango MD [address] [place] [address] 07/23/2025 9:50 AM EDT Office Visit [facility] [address] [facility] [address] [place] [phone] Omi Baldwin MD [address] [place] [address] [address] [place] [address] Health Maintenance Due Date Last Done Comments [...] Completed 03/15/2016 Depression Screening Completed 01/01/2025, 10/13/19 HIB Vaccines Aged Out No longer eligi [...] Procedure Name Priority Date/Time Associated Diagnosis Comments EXTERNAL CLINICAL LAB 03/22/2025 DARA IFA WITH TITER AND PATTERN Routine [...] Recently Relevant to Health Maintenance Results * External clinical lab (03/22/2025) us Provider [facility] LAB BLOOD ORDERABLES Fin al Result * DARA IFA with titer and pattern (01/01/2025 3:23 PM EDT) DARA Negative Negative 01/02/2025 1:05 PM EDT [facility] Comment:DARA performed by ind clydect immunofluorescence (IFA) using HEp-2 substrate. Blood Venous blood specimen / Unknown Venipuncture / Unknown 01/01/2025 3:23 PM EDT 01/01/2025 3:23 PM EDT Daisy PULLIAM LAB BLOOD ORDERABLES Final Result [facility] [address] [place] [address], [place] [phone] * Uric acid (01/01/2025 3:23 PM EDT) Uric Acid 3.5 3.1 - 7.8 mg/dL LAB CHEMISTRY METHOD 01/01/2025 6:00 PM EDT [facility] Blood Venous blood specimen / Unknown Venipuncture / Unknown 01/01/2025 3:23 PM EDT 01/01/2025 3:23 PM EDT Daisy PULLIAM LAB BLOOD ORDERABLES Final Result Performing Organization Address [facility]/ZIP Co de Phone Number [facility] [address] [place] [address], [place] [phone] * Hemoglobin A1c (01/01/2025 3:23 PM EDT) [facility] Hemoglobin A1C 6.2 <6.5 % LAB CHEMISTRY METHOD 01/01/2025 9:23 PM EDT [facility] Mean Bld Glu Estim. 131 mg/dL LAB CHEMISTRY METHOD 01/01/2025 9:23 PM EDT [facility] Blood Venous blood specimen / Unknown Venipuncture / Unknown 01/01/2025 3:23 PM EDT 01/01/2025 3:23 PM EDT Daisy PULLIAM LAB BLOOD ORDERABLES Final Result Performing Organization Address [facility]/ZIP Co de Phone Number [facility] [address] [place] [address], [place] [phone] * (ABNORMAL) Comprehensive metabolic panel (01/01/2025 3:23 PM EDT) [facility] Sodium 135 133 - 145 mmol/L LAB CHEMISTRY METHOD 01/01/2025 6:00 PM EDT [facility] Potassium 4.1 3.5 - 5.5 mmol/L LAB CHEMISTRY METHOD 01/01/2025 6:00 PM EDT [facility] Chloride 101 96 - 110 mmol/L LAB CHEMISTRY METHOD 01/01/2025 6:00 PM EDT [facility] CO2 31 21 - 32 mmol/L LAB CHEMISTRY METHOD 01/01/2025 6:00 PM EDT [facility] Anion Gap 3 3 - 11 LAB CHEMISTRY METHOD 01/01/2025 6:00 PM [facility] Glucose 104(H) 70 - 100 mg/dL LAB CHEMISTRY METHOD 01/01/2025 6:00 PM [facility] BUN 15 5 - 25 mg/dL LAB CHEMISTRY METHOD 01/01/2025 6:00 PM [facility] Creatinine 0.80 0.50 - 1.10 mg/dL LAB CHEMISTRY METHOD 01/01/2025 6:00 PM [facility] eGFR 77 >=60 mL/min/1. 73m2 LAB CHEMISTRY METHOD 01/01/2025 6:00 PM [facility] Comment:Calculation based on the Chronic Kidney Disease Epidemiology Collaboration (CKD-EPI) equation refit without adjustment for race. BUN/Creatinine Ratio 18.8 LAB CHEMISTRY METHOD 01/01/2025 6:00 PM [facility] Calcium 9.7 8.5 - 10.5 mg/dL LAB CHEMISTRY METHOD 01/01/2025 6:00 PM [facility] AST (SGOT) 20 10 - 42 unit/L LAB CHEMISTRY METHOD 01/01/2025 6:00 PM [facility] ALT (SGPT) 44 10 - 60 unit/L LAB CHEMISTRY METHOD 01/01/2025 6:00 PM [facility] Alkaline Phosphatase 54 42 - 121 unit/L LAB CHEMISTRY METHOD 01/01/2025 6:00 PM [facility] Total Protein 6.7 6.0 - 8.0 g/dL LAB CHEMISTRY METHOD 01/01/2025 6:00 PM [facility] Albumin 4.0 3.2 - 5.0 g/dL LAB CHEMISTRY METHOD 01/01/2025 6:00 PM [facility] Total Bilirubin 0.4 0.0 - 1.4 mg/dL LAB CHEMISTRY METHOD 01/01/2025 6:00 PM EDT [facility] Blood Venous blood specimen / Unknown Venipuncture / Unknown 01/01/2025 3:23 PM EDT 01/01/2025 3:23 PM EDT us Daisy PULLIAM LAB BLOOD ORDERABLES Final Result [facility] [address] [place] [address], [place] [phone] * MG Mammo Digital Screening w Flash bilat (11/03/2024 11:17 AM EDT) Anatomical Region Laterality Modality Breast Bilateral Mammography 11/05/2024 4:23 PM EDT Impressions 11/05/2024 4:24 PM EDT No mammographic evidence of malignancy. BREAST DENSITY: B - There are scattered areas of fibroglandular density. BI-RADS CATEGORY: 1 - NEGATIVE RECOMMENDATION: Screening bilateral mammogram is recommended in 1 year. MAMMO LOCATION: [facility], [address] [place] [address], [phone], . -------- FINAL REPORT -------- Dictated By: Maria L Lyons Dictated Date: 11/05/2024 16:23 ET Assigned Physician: Maria L Lyons Reviewed and Electronically Signed By: Maria L Lyons Signed Date: 11/05/2024 16:24 ET Workstation ID: [id number] Transcribed By: Self Edit Transcribed Date: 11/05/2024 [...] is recommended in 1 year. MAMMO LOCATION: [facility], [address] [place] [address], [phone], . -------- FINAL REPORT -------- Dictated By: Maria L Lyons Dictated Date: 11/05/2024 16:23 ET Assigned Physician: Maria L Lyons Reviewed and Electronically Signed By: Maria L Lyons Signed Date: 11/05/2024 16:24 ET Workstation ID: [id number] Transcribed By: Self Edit Transcribed Date: 11/05/2024 16:23 ET Lisbet Tarango MD IM BI PROCEDURES Final Result * (ABNORMAL) Lipid panel with reflex to direct LDL (04/13/2024 11:17 AM EST) Cholesterol 212(H) 0 - 200 mg/dL LAB CHEMISTRY METHOD 04/13/2024 12:32 PM EST [facility] Triglycerides 185(H) 0 - 150 mg/dL LAB CHEMISTRY METHOD 04/13/2024 12:32 PM EST [facility] HDL 89 >=40 mg/dL LAB CHEMISTRY METHOD 04/13/2024 12:32 PM EST [facility] LDL Calculated 86 0 - 100 mg/dL LAB CHEMISTRY METHOD 04/13/2024 12:32 PM [facility] VLDL Cholesterol Fady 37 mg/dL LAB CHEMISTRY METHOD 04/13/2024 12:32 PM EST [facility] Non HDL Chol. (LDL+VLDL) 123 <145 mg/dL LAB CHEMISTRY METHOD 04/13/2024 12:32 PM EST [facility] Chol/HDL Ratio 2.4 0.0 - 4.4 LAB CHEMISTRY METHOD 04/13/2024 12:32 PM EST [facility] Blood Venous blood specimen / Unknown Venipuncture / Unknown 04/13/2024 11:17 AM EST 04/13/2024 11:17 AM EST Carlos PULLIAM LAB BLOOD ORDERABLES Final Res ult [facility] [address] [place] [address], [place] [phone] * Falls Risk Assessment (10/11/2023) [facility] Falls Risk Assessment abstracted [facility] Provider HEALTH MAINTENANCE Final Result * DXA BONE DENSITY STUDY 1+ SITS AXIAL SKEL (11/10/2021 2:59 PM EDT) Anatomical Region Laterality Modality Bone Densitometr y 09/28/2021 10:3 5 AM EDT Narrative 11/10/2021 5:23 PM EDT Clinical history: menopausal/postmenopausal disorder Scans of the lumbar spine and hips were performed on a [employer] fan beam bone densitometer. Bone mineral density [...] spine and hips were performed on a [employer] beam bone densitometer. Bone mineral density measurements [...] Final R esult * Depression Screening (10/12/2020) [facility] Depression Screening abstracted [facility] Provider HEALTH MAINTENANCE Final Result * Colonoscopy (08/25/2017) [facility] Colonoscopy no interpretation , abstracted Anatomical Region Laterality Modality Other [facility] Provider HEALTH MAINTENANCE Final Result * Hepatitis C Screening (03/15/2016) [facility] Hepatitis C Screening abstracted [facility] Provider HEALTH MAINTENANCE Final Result from Last 3 Months or Most Recently Relevant to Health Maintenance Insurance [place]ICAID - [place] [employer]ARE MEDICARE Care Teams Grocery Caddy Relationship Specialty Start Date End Date Lisbet Tarango MD [address] [place] [id number] PCP - General 06/27/10
== END 2025-03-26 11:12 | disposition home or self-care (01) ==
LOC: HO.HPHYS 10:25
PROVIDERS: PCP Internal Medicine; Visit Provider Physician Assistant
DX: M17.0 Bilateral primary osteoarthritis of knee (principal)
CPT/HCPCS: 20610

== ENCOUNTER → 2025-03-26 10:24 | Outpatient (BNVA) | payer MEDICARE, MEDICAID, SELFPAY | PROVIDERS: PCP Internal Medicine; Visit Provider Physician Assistant | DX: M17.0 Bilateral primary osteoarthritis of knee (principal) | CPT/HCPCS: 20610; J2003; J3301 ==

== ENCOUNTER 2025-04-04 11:15 | Outpatient (REF) | payer MEDICARE, MEDICAID, SELFPAY ==
--- NOTE | ~2025-04-04 | MM_ITS ---
EXAMINATION: DXA BONE DENSITY AXIAL HISTORY: M81.0 - Age-related osteoporosis without current pathological fracture TECHNIQUE: [employer] Dual energy absorptiometry (DEXA) of the lumbar spine, total left hip, and femoral neck was performed. COMPARISON: There are no prior studies for comparison. FINDINGS: The bone mineral density of the lumbar spine is 1.435 g/cm2, corresponding to a T-score of 2.0, and a Z-score of 3.0. This is indicative of normal bone mineral density. The bone mineral density of the left total hip is 1.135 g/cm2, corresponding to a T-score of 1.0, and a Z-score of 1.8. This is indicative of normal bone mineral density. The bone mineral density of the left femoral neck is 1.042 g/cm2, corresponding to a T-score of 0.0, and a Z-score of 1.0. This is indicative of normal bone mineral density. MM/XR DEXA axial skeleton IMPRESSION: Based on bone mineral density, and according to World Health Organization (WHO) criteria, the diagnosis is consistent with normal bone mineral density. Statistically, 68% of repeat scans fall within 1 SD (+/- 0.010 g/cm2 for AP spine L1-L4) and 1 SD (+/- 0.012 g/cm2 for femur total) FRAX is a trademark of the [employer]'s [place] for Metabolic Bone Disease, a World Health Organization (WHO) Collaborating Center. Electronically signed by: Florentino Deal MD 04/04/2025 11:48 AM [facility]
--- OUTSIDE RECORDS SUMMARY | 2025-04-04 17:29 | XMS_ITS | Encounter Summary ---
Author Organization [facility] Address [address] [place] [address] Phone Care Team Providers Care Harvest Worker Name Role Phone Lisbet Tarango MD Primary Care Pr ovider Encounter Details Date Type Department Care Team (Late st Contact Info) Description 10/20/2021 Documentation Only [facility] [place], [address] [place] [address] Lisbet Tarango MD [address] [place] [address] Social History Tobacco Use Types Packs/Day Years [...] on filedocumented in this encounter Care Teams Harvest Worker Relationship Specialty Start Date End Date Lisbet Tarango MD PCP - General Internal Medicine 10/20/21 documented as of this encounter
--- OUTSIDE RECORDS SUMMARY | 2025-04-04 17:29 | XMS_ITS | Clinical Summary ---
Author Organization [facility] [place], Address [address] [place] [address] [place] [address] Phone Care Team Providers Care Hand Box Folder Name Role Phone Lisbet Tarango MD Primary [...] Medicare [place] [employer] Commercial Care Teams Hand Box Folder Relationship Specialty Start Date End Date Lisbet Tarango MD PCP - General Internal Medicine 10/20/21
--- OUTSIDE RECORDS SUMMARY | 2025-04-04 17:29 | XMS_ITS | Encounter Summary ---
Author Organization [facility] [place], Address [address] [place] [address] Phone Care Team Providers Care Operations Support Representative Name Role Phone Lisbet Tarango MD Primary Care Pr ovider Encounter Details Date Type Department Care Team (Late st Contact Info) Description 01/26/2022 Documentation Only [facility] [address] [place] [address] Mikhail Malik MD [address] [place] [phone] Social History Tobacco Use Types Packs/Day Years [...] on filedocumented in this encounter Care Teams Operations Support Representative Relationship Specialty Start Date End Date Lisbet Tarango MD PCP - General Internal Medicine 10/20/21 documented as of this encounter
--- OUTSIDE RECORDS SUMMARY | 2025-04-04 17:29 | XMS_ITS | Clinical Summary ---
Author Organization [facility] Address [address] [place] [address] Phone Care Team Providers Care Staff Rn Name Role Phone Lisbet Tarango MD Primary [...] 8:29 AM EDT): Hypertrophic obstructive car diomyopathy ([facility] V24, [facility] V28) 11/03/2005 Overview (02/20/2024): IMO update Last Assessment & Plan: Echo updated in 2021, stable. No new symptoms. Assessment & Plan (01/02/2025 8:29 AM EDT): Immunizations Immunization Administration Dates Next Due Influenza trivalent, with pr eservative (Fluzone; Afluria) 6mo and older 03/01/2008 PPD Test 11/03/2005,05/15/2002 Tdap Tetanus diptheria acell ular pertussis (Boostrix; Adacel) 7yo and older 01/01/2025,10/16/2014 Surgical History Surgery Date Site/Laterality Comments OTHER SURGICAL HISTORY PROCEDURE: [place] HYSTEROSCOPY ENDOMETRIAL ABLATION SECTION PROCEDURE: [place] DELIVERY ONLY OTHER SURGICAL HISTORY PROCEDURE: [place] LIG/TRNSXJ FLP TUBE ABDL/VAG APPR UNI/BI COLONOSCOPY [...] cancer Brother 3 ? type ca in [facility]- in [place] Colon cancer Father dad [...] care for your loved ones. For example, maternal child nurse or elderly care for an older [...] AM EST Office Visit Adult Medicine - [place] [address] [place] [phone] Lisbet Tarango MD [address] [place] [address] 07/23/2025 9:50 AM EDT Office Visit [facility] [address] [place] [address] [place] [phone] Omi Baldwin MD [address] [place] [address] [address] [place] [phone] Health Maintenance Due Date Last Done Comments Pneumococcal Vaccine: 50+ Years (1 of 1 - PCV) 2000 Zoster Vaccines (1 of 2) 2000 COVID-19 Vaccine (3 - 2024- season) 2025 10/04/2020, 09/10/2020 Influenza Vaccine (#1) 2025 03/01/2008 RSV Immunization Adult Patients (1 - 1-dose 75+ series) 2025 Falls Risk Assessment 01/01/2026 01/01/2025 , 10/09/2024, 10/11/2023 Hypertension/CHF/CAD Annual BMP Blood Test 01/01/2026 01/01/2025, 08/06/2024, 04/13/2024, Additional history exists Medicare Annual Wellness Visit 01/01/2026 01/01/2025 Social Influencers of Health Screening 01/01/2026 01/01/2025 Breast Cancer Screening 04/04/2027 04/04/20, 11/03/2024, 10/15/2023, Additional history exists Colorectal Cancer Screening: [...] Name Priority Date/Time Associated Diagnosis Comments EXTERNAL MAMMOGRAM REPORT 04/04/2025 EXTERNAL CLINICAL LAB 03/22/2025 COMPREHENSIVE METABOLIC PANEL Routine 01/01/2025 3:23 PM EDT Resistant hypertension LIPID PANEL WITH REFLEX TO DIRECT LDL Routine 04/13/2024 11:17 AM EST Mixed hyperlipidemia FALLS RISK ASSESSMENT Routine 10/11/2023 DXA BONE DENSITY STUDY 1+ SITS AXIAL SKEL Routine 11/10/2021 2:59 PM EDT Encounter for screening for osteoporosis DEPRESSION SCREENING Routine 10/12/2020 COLONOSCOPY Routine 08/25/2017 HEPATITIS C SCREENING Routine 03/15/2016 from Last 3 Months or Most Recently Relevant to Health Maintenance Results * External Mammogram Report (04/04/2025) Anatomical Region Laterality Modality Mammography us Provider [facility] BI PROCEDURES Final Result * External clinical lab (03/22/2025) us Provider [facility] LAB BLOOD ORDERABLES Fin al Result * (ABNORMAL) Comprehensive metabolic panel (01/01/2025 3:23 PM EDT) Sodium 135 133 - 145 mmol/L LAB CHEMISTRY METHOD 01/01/2025 6:00 PM [facility] Potassium 4.1 3.5 - 5.5 mmol/L LAB CHEMISTRY METHOD 01/01/2025 6:00 PM [facility] Chloride 101 96 - 110 mmol/L LAB CHEMISTRY METHOD 01/01/2025 6:00 PM [facility] CO2 31 21 - 32 mmol/L LAB CHEMISTRY METHOD 01/01/2025 6:00 PM [facility] Anion Gap 3 3 - 11 LAB CHEMISTRY METHOD 01/01/2025 6:00 PM [facility] Glucose 104(H) 70 - 100 mg/dL LAB CHEMISTRY METHOD 01/01/2025 6:00 PM [facility] BUN 15 5 - 25 mg/dL LAB CHEMISTRY METHOD 01/01/2025 6:00 PM [facility] Creatinine 0.80 0.50 - 1.10 mg/dL LAB CHEMISTRY METHOD 01/01/2025 6:00 PM [facility] eGFR 77 >=60 mL/min/1. 73m2 LAB CHEMISTRY METHOD 01/01/2025 6:00 PM [facility] Comment:Calculation based on the Chronic Kidney Disease Epidemiology Collaboration (CKD-EPI) equation refit without adjustment for race. BUN/Creatinine Ratio 18.8 LAB CHEMISTRY METHOD 01/01/2025 6:00 PM [facility] Calcium 9.7 8.5 - 10.5 mg/dL LAB CHEMISTRY METHOD 01/01/2025 6:00 PM [facility] AST (SGOT) 20 10 - 42 unit/L LAB CHEMISTRY METHOD 01/01/2025 6:00 PM EDT [facility] ALT (SGPT) 44 10 - 60 unit/L LAB CHEMISTRY METHOD 01/01/2025 6:00 PM EDT [facility] Alkaline Phosphatase 54 42 - 121 unit/L LAB CHEMISTRY METHOD 01/01/2025 6:00 PM EDT [facility] Total Protein 6.7 6.0 - 8.0 g/dL LAB CHEMISTRY METHOD 01/01/2025 6:00 PM EDT [facility] Albumin 4.0 3.2 - 5.0 g/dL LAB CHEMISTRY METHOD 01/01/2025 6:00 PM EDT [facility] Total Bilirubin 0.4 0.0 - 1.4 mg/dL LAB CHEMISTRY METHOD 01/01/2025 6:00 PM EDT [facility] Blood Venous blood specimen / Unknown Venipuncture / Unknown 01/01/2025 3:23 PM EDT 01/01/2025 3:23 PM EDT us [facility] BLOOD ORDERABLES Final Result [facility] [address] [place] [address], * (ABNORMAL) Lipid panel with reflex to direct LDL (04/13/2024 11:17 AM EST) Cholesterol 212(H) 0 - 200 mg/dL LAB CHEMISTRY METHOD 04/13/2024 12:32 PM EST [facility] Triglycerides 185(H) 0 - 150 mg/dL LAB CHEMISTRY METHOD 04/13/2024 12:32 PM EST [facility] HDL 89 >=40 mg/dL LAB CHEMISTRY METHOD 04/13/2024 12:32 PM EST [facility] LDL Calculated 86 0 - 100 mg/dL LAB CHEMISTRY METHOD 04/13/2024 12:32 PM EST [facility] VLDL Cholesterol Fady 37 mg/dL [...] ult [facility] [address] [place] [address], * Falls Risk Assessment (10/11/2023) [facility] Falls Risk Assessment abstracted Historical Provider HEALTH MAINTENANCE Final Result * DXA BONE DENSITY STUDY 1+ SITS AXIAL SKEL (11/10/2021 2:59 PM EDT) Anatomical Region Laterality Modality Bone Densitometr y 09/28/2021 10:3 5 AM EDT Narrative 11/10/2021 5:23 PM EDT Clinical history: menopausal/postmenopausal disorder Scans of the lumbar spine and hips were performed on a [employer] fan beam bone densitometer. Bone mineral density [...] spine and hips were performed on a [employer] beam bone densitometer. Bone mineral density measurements [...] Final R esult * Depression Screening (10/12/2020) [facility] Depression Screening abstracted [facility] Provider HEALTH MAINTENANCE Final Result * Colonoscopy (08/25/2017) [facility] Colonoscopy no interpretation , abstracted Anatomical Region Laterality Modality Other Historical Provider HEALTH MAINTENANCE Final Result * Hepatitis C Screening (03/15/2016) [facility] Hepatitis C Screening abstracted [facility] Provider HEALTH MAINTENANCE Final Result from Last 3 Months or Most Recently Relevant to Health Maintenance Insurance MEDICAID - [place] [employer] MEDICARE Care Teams Staff Rn Relationship Specialty Start Date End Date Lisbet Tarango MD [address] [place] [id number] PCP - General 06/27/10
--- OUTSIDE RECORDS SUMMARY | 2025-04-04 17:29 | XMS_ITS | Clinical Summary ---
Author Organization [facility] Address [address] [place] [address] Care Team Providers Care Molder Machine Tender Name Role Phone Unavailable Primary Care Provider [...] patient's age to complete this topic Insurance [facility] MEDICARE PART A & B
== END 2025-04-04 11:16 | disposition home or self-care (01) ==
LOC: HO.MAMMO 11:15
PROVIDERS: PCP Internal Medicine; Visit Provider Student in an Organized Health Care Education/Training Program
DX: M81.0 Age-related osteoporosis without current pathological fracture (principal)
CPT/HCPCS: 77080

== ENCOUNTER → 2025-04-04 11:16 | Outpatient (BNV) | payer MEDICARE, MEDICAID, SELFPAY | PROVIDERS: PCP Internal Medicine; Visit Provider Radiology Diagnostic Radiology | DX: E28.39 Other primary ovarian failure (principal) | CPT/HCPCS: 77080 ==